=== PATIENT | male | born 1985 | race Caucasian/White ===

== ENCOUNTER 2020-07-04 03:41 | Emergency (ER) | payer MEDICAID ==
[~2020-07-04] VITALS: Ht 172.7 cm; Wt 79.0 kg
[2020-07-04 03:44] VITALS: BP 133/86
[2020-07-04] MEDS ORDERED: AMOX1TAB16 PO (16:08)
== END 2020-07-04 04:28 | disposition left against medical advice (07) ==
LOC: ER 03:41
DX: Z53.21 Procedure and treatment not carried out due to patient leaving prior to being seen by health care provider (principal)

== ENCOUNTER 2020-07-04 15:47 | Emergency (ER) | payer MEDICAID ==
[~2020-07-04] VITALS: Ht 167.6 cm; Wt 77.0 kg
[2020-07-04] MEDS ORDERED: AMOX1TAB16 PO (16:08)
[2020-07-04] MEDS ORDERED: HYDROCODONE/ACETAMINOPHEN 5/325MG TABLET PO ONE (17:00)
[2020-07-04 17:45] VITALS: BP 137/94
[2020-07-04] MEDS ORDERED: BACITRACIN ZINC OINT UDPKT TOP ONE (18:00)
== END 2020-07-04 18:46 | disposition home or self-care (01) ==
LOC: ER 16:02
DX: Z48.00 Encounter for change or removal of nonsurgical wound dressing (principal)
CPT/HCPCS: 99281